=== PATIENT | male | born 1980 | race Hispanic/Latino ===

== ENCOUNTER 2023-05-14 05:17 | Inpatient (IN) | payer OTHER ==
[2023-05-14 06:45] VITALS: BMI 66.7
[2023-05-14] MEDS ORDERED: Acetaminophen 325 MG TAB PO PRN (07:39)
[2023-05-14] MEDS ORDERED: Guaifenesin DM 100-10/5 ML UDCUP PO PRN (07:39)
[2023-05-14] MEDS ORDERED: Senokot S 8.6-50 MG TAB PO PRN (07:39)
[2023-05-14] MEDS ORDERED: HYDROcodone/Acetaminophen 5/325 mg Tablet PO PRN (07:39)
[2023-05-14] MEDS ORDERED: HumaLOG 300 UNITS/3 ML VIAL SC PRN (07:53)
[2023-05-14] MEDS ORDERED: Glucagon 1 MG/ML KIT IM PRN (07:53)
[2023-05-14] MEDS ORDERED: Dextrose 50% Abboject 50 ML SYRINGE SLOW IVP PRN (07:53)
[2023-05-14] MEDS ORDERED: Dextrose 5% in Water 1,000 ML IV PRN (07:53)
[2023-05-14] MEDS ORDERED: Vancomycin HCl 500 MG in Sodium Chloride 0.9% 100 ML IVPB SCH (08:15)
[2023-05-14 08:27] LABS: Anion Gap 14 mmol/L (10-20); BUN (Urea Nitrogen) 18 mg/dL (8.9-20.6); CRP (Inflammatory) 21.29 mg/dL (= or < 0.5); Calc. Creatinine Clearance 184 mL/min (70-130); Calcium 8.2 mg/dL (7.8-10.44); Carbon Dioxide 18 mmol/L (22-29); Chloride 105 mmol/L (98-107); Estimated GFR 59; Glucose 109 mg/dL (70-105); Sodium 133 mmol/L (136-145)
[2023-05-14] MEDS ORDERED: Ipratropium/Albuterol 3 ML NEB NEB PRN (08:27)
[2023-05-14] MEDS ORDERED: Albuterol 200 PUFF (6.7GM INHALER) INH PRN (08:31)
[2023-05-14] MEDS: HYDROcodone/Acetaminophen 5/325 mg Tablet PO PRN (08:57)
[2023-05-14] MEDS ORDERED: Mometasone 100 MCG/PUFF (1 INHALER) INH SCH (09:00)
[2023-05-14] MEDS: Carvedilol 6.25 MG TAB PO SCH ×2 (09:07→20:18)
[2023-05-14] MEDS: Citalopram 20 MG TAB PO SCH (09:08)
[2023-05-14] MEDS: hydrALAZINE 25 MG TAB PO SCH ×3 (09:08→20:18)
[2023-05-14] MEDS ORDERED: Piperacillin/Tazobactam 3.375 GM in Sodium Chloride 0.9% 100 ML IVPB SCH (09:45)
[2023-05-14] MEDS: Morphine 4 MG/ML VIAL SLOW IVP PRN ×2 (12:58→20:18)
[2023-05-14] MEDS ORDERED: Iopamidol-370 76% 500 ML MDV (1 ML CHARGE) ONE (14:19)
[2023-05-14] MEDS: Piperacillin/Tazobactam 3.375 GM in Sodium Chloride 0.9% 100 ML IVPB SCH ×2 (14:53→21:04)
[2023-05-14] MEDS: Ketorolac Tromethamine 30 MG/ML VIAL IVP PRN (15:17)
[2023-05-14 15:56] LABS: Troponin I Less than 0.010 ng/mL (< 0.028)
[2023-05-14 16:44] LABS: Bacteria/HPF None Seen HPF (None Seen); Bilirubin Negative (Negative); Blood, Urine Negative (Negative); Clarity Clear (Clear); Glucose, Urine (Dipstick) Greater than 1000 mg/dL (Negative); Ketone, Urine Negative (Negative); Leukocyte Negative Leu/uL (Negative); Nitrite Negative (Negative); Protein, Urine (Dipstick) Negative (Neg-Trace); RBC/HPF 0-3 HPF (0-3); Squamous Epithelial 0-3 HPF (0-3); Urobilinogen Normal mg/dL (Less than 2); WBC/HPF 0-3 HPF (0-3); pH, Urine 6.5 (5.0-9.0)
[2023-05-14] MEDS: VANCOMYCIN 2 GRAM/500 ML BAG 2 GM in Premix Bag 1 BAG IVPB SCH (17:38)
[2023-05-14] MEDS: Mometasone 100 MCG/PUFF (1 INHALER) INH SCH (19:11)
[2023-05-15] MEDS: Ketorolac Tromethamine 30 MG/ML VIAL IVP PRN ×3 (00:47→23:34)
[2023-05-15] MEDS: VANCOMYCIN 2 GRAM/500 ML BAG 2 GM in Premix Bag 1 BAG IVPB SCH ×3 (04:02→20:20)
[2023-05-15] MEDS: HYDROcodone/Acetaminophen 5/325 mg Tablet PO PRN ×2 (05:00→18:17)
[2023-05-15] MEDS: Piperacillin/Tazobactam 3.375 GM in Sodium Chloride 0.9% 100 ML IVPB SCH ×3 (06:55→23:35)
[2023-05-15 07:00] LABS: #Eosinphils 0.3 thou/uL (0.0-0.7); #Monocytes 0.7 thou/uL (0.11-0.59); #Neutrophils 5.8 thou/uL (1.40-6.50); %Basophils 0.5 % (0.0-1.0); %Eosinophils 3.3 % (0.0-10.0); %Monocytes 9.4 % (0.0-10.0); %Neutrophils 75.9 % (42.0-75.0); Hematocrit 31.1 % (42.0-52.0); Hemoglobin 9.9 g/dL (14.0-18.0); Mean Corpuscular HGB CONC 31.8 g/dL (32.0-36.0); Mean Corpuscular Hemoglobin 26.4 pg (27.0-31.0); Mean Corpuscular Volume 82.9 fl (78.0-98.0); Mean Platelet Volume 9.4 fL (7.4-10.4); Platelet Count 222 10x3/uL (130-400); RBC Distribution Width 15.9 % (11.5-14.5); Red Blood Cell (RBC) Count 3.75 mill/uL (4.70-6.10); White Blood Cell (WBC) Count 7.6 10x3/uL (4.8-10.8)
[2023-05-15] MEDS: Mometasone 100 MCG/PUFF (1 INHALER) INH SCH ×2 (07:23→18:59)
[2023-05-15 07:28] LABS: Anion Gap 10 mmol/L (10-20); BUN (Urea Nitrogen) 15 mg/dL (8.9-20.6); Calc. Creatinine Clearance 198 mL/min (70-130); Calcium 8.4 mg/dL (7.8-10.44); Carbon Dioxide 20 mmol/L (22-29); Chloride 106 mmol/L (98-107); Estimated GFR 65; Glucose 111 mg/dL (70-105); Potassium 4.1 mmol/L (3.5-5.1); Sodium 132 mmol/L (136-145)
[2023-05-15] MEDS: Morphine 4 MG/ML VIAL SLOW IVP PRN ×2 (07:54→20:20)
[2023-05-15] MEDS: Carvedilol 6.25 MG TAB PO SCH ×2 (07:55→20:20)
[2023-05-15] MEDS: Citalopram 20 MG TAB PO SCH (07:57)
[2023-05-15] MEDS: hydrALAZINE 25 MG TAB PO SCH ×3 (07:58→20:19)
[2023-05-15 17:14] LABS: Vancomycin, Trough 17.1 ug/mL
[2023-05-16] MEDS: metroNIDAZOLE 500 MG TAB PO SCH ×4 (01:56→20:27)
[2023-05-16] MEDS: HYDROcodone/Acetaminophen 5/325 mg Tablet PO PRN ×2 (02:41→17:31)
[2023-05-16] MEDS: Cefepime 2 GM in Sodium Chloride 0.9% 100 ML IVPB SCH ×3 (05:22→22:54)
[2023-05-16] MEDS: Furosemide 40 MG/4 ML VIAL SLOW IVP SCH ×2 (05:23→13:30)
[2023-05-16] MEDS: Morphine 4 MG/ML VIAL SLOW IVP PRN ×3 (06:09→22:52)
[2023-05-16] MEDS: VANCOMYCIN 2 GRAM/500 ML BAG 2 GM in Premix Bag 1 BAG IVPB SCH ×2 (06:10→17:26)
[2023-05-16] MEDS: Mometasone 100 MCG/PUFF (1 INHALER) INH SCH ×2 (07:31→19:19)
[2023-05-16] MEDS: hydrALAZINE 25 MG TAB PO SCH ×3 (09:16→20:27)
[2023-05-16] MEDS: Carvedilol 6.25 MG TAB PO SCH ×2 (09:18→20:27)
[2023-05-16] MEDS: Ketorolac Tromethamine 30 MG/ML VIAL IVP PRN ×2 (09:18→20:29)
[2023-05-16] MEDS: Citalopram 20 MG TAB PO SCH (09:18)
[2023-05-17] MEDS: HYDROcodone/Acetaminophen 5/325 mg Tablet PO PRN ×3 (02:19→20:42)
[2023-05-17] MEDS: metroNIDAZOLE 500 MG TAB PO SCH ×4 (02:19→20:42)
[2023-05-17] MEDS: Cefepime 2 GM in Sodium Chloride 0.9% 100 ML IVPB SCH ×3 (05:05→21:25)
[2023-05-17 05:19] LABS: #Eosinphils 0.3 thou/uL (0.0-0.7); #Monocytes 0.7 thou/uL (0.11-0.59); #Neutrophils 5.1 thou/uL (1.40-6.50); %Basophils 0.6 % (0.0-1.0); %Eosinophils 3.6 % (0.0-10.0); %Monocytes 9.5 % (0.0-10.0); %Neutrophils 72.2 % (42.0-75.0); Hematocrit 31.2 % (42.0-52.0); Hemoglobin 10.1 g/dL (14.0-18.0); Mean Corpuscular HGB CONC 32.4 g/dL (32.0-36.0); Mean Corpuscular Volume 80.2 fl (78.0-98.0); Mean Platelet Volume 9.8 fL (7.4-10.4); Platelet Count 270 10x3/uL (130-400); RBC Distribution Width 15.5 % (11.5-14.5); Red Blood Cell (RBC) Count 3.89 mill/uL (4.70-6.10)
[2023-05-17 05:42] LABS: Vancomycin, Trough 21.6 ug/mL
[2023-05-17 05:50] LABS: Anion Gap 7 mmol/L (10-20); BUN (Urea Nitrogen) 21 mg/dL (8.9-20.6); Calc. Creatinine Clearance 239 mL/min (70-130); Calcium 8.5 mg/dL (7.8-10.44); Carbon Dioxide 26 mmol/L (22-29); Chloride 104 mmol/L (98-107); Estimated GFR 83; Glucose 106 mg/dL (70-105); Sodium 133 mmol/L (136-145)
[2023-05-17] MEDS: VANCOMYCIN 2 GRAM/500 ML BAG 2 GM in Premix Bag 1 BAG IVPB SCH (06:16)
[2023-05-17] MEDS: Furosemide 40 MG/4 ML VIAL SLOW IVP SCH ×2 (06:25→13:56)
[2023-05-17] MEDS: VANCOMYCIN 1.75 GM/500 ML BAG 1.75 GM in Premix Bag 1 BAG IVPB SCH ×2 (06:25→18:35)
[2023-05-17] MEDS: Ketorolac Tromethamine 30 MG/ML VIAL IVP PRN ×3 (06:26→23:43)
[2023-05-17] MEDS: Mometasone 100 MCG/PUFF (1 INHALER) INH SCH ×2 (07:37→19:16)
[2023-05-17] MEDS: Carvedilol 6.25 MG TAB PO SCH ×2 (08:43→20:41)
[2023-05-17] MEDS: hydrALAZINE 25 MG TAB PO SCH ×3 (08:44→20:41)
[2023-05-17] MEDS: Citalopram 20 MG TAB PO SCH (08:44)
[2023-05-17] MEDS: Morphine 4 MG/ML VIAL SLOW IVP PRN (08:45)
[2023-05-17] MEDS: Ondansetron ODT 4 MG TAB PO PRN (17:17)
[2023-05-18] MEDS: metroNIDAZOLE 500 MG TAB PO SCH ×4 (02:07→19:41)
[2023-05-18] MEDS: HYDROcodone/Acetaminophen 5/325 mg Tablet PO PRN ×3 (05:01→19:42)
[2023-05-18] MEDS: Cefepime 2 GM in Sodium Chloride 0.9% 100 ML IVPB SCH ×3 (05:02→21:15)
[2023-05-18] MEDS: Furosemide 40 MG/4 ML VIAL SLOW IVP SCH ×2 (05:03→14:39)
[2023-05-18] MEDS: VANCOMYCIN 1.75 GM/500 ML BAG 1.75 GM in Premix Bag 1 BAG IVPB SCH ×2 (05:42→19:22)
[2023-05-18 07:34] LABS: Anion Gap 12 mmol/L (10-20); BUN (Urea Nitrogen) 19 mg/dL (8.9-20.6); Calc. Creatinine Clearance 229 mL/min (70-130); Calcium 9.1 mg/dL (7.8-10.44); Carbon Dioxide 25 mmol/L (22-29); Chloride 100 mmol/L (98-107); Estimated GFR 79; Glucose 112 mg/dL (70-105); Sodium 133 mmol/L (136-145)
[2023-05-18] MEDS: Citalopram 20 MG TAB PO SCH (08:12)
[2023-05-18] MEDS: Ondansetron ODT 4 MG TAB PO PRN (08:12)
[2023-05-18] MEDS: Carvedilol 6.25 MG TAB PO SCH ×2 (08:13→19:42)
[2023-05-18] MEDS: hydrALAZINE 25 MG TAB PO SCH ×3 (08:13→19:41)
[2023-05-18] MEDS: Mometasone 100 MCG/PUFF (1 INHALER) INH SCH ×2 (08:14→19:12)
[2023-05-18] MEDS: Morphine 4 MG/ML VIAL SLOW IVP PRN ×2 (08:23→17:07)
[2023-05-18 18:14] LABS: Vancomycin, Trough 22.7 ug/mL
[2023-05-18] MEDS: Vancomycin 1.5 GRAM/300 ML BAG 1.5 GM in Premix Bag 1 BAG IVPB SCH (21:57)
[2023-05-19] MEDS: Ketorolac Tromethamine 30 MG/ML VIAL IVP PRN (00:25)
[2023-05-19] MEDS: metroNIDAZOLE 500 MG TAB PO SCH ×4 (02:46→20:03)
[2023-05-19] MEDS: Cefepime 2 GM in Sodium Chloride 0.9% 100 ML IVPB SCH ×3 (05:34→22:42)
[2023-05-19] MEDS: Furosemide 40 MG/4 ML VIAL SLOW IVP SCH ×2 (05:34→13:41)
[2023-05-19] MEDS: HYDROcodone/Acetaminophen 5/325 mg Tablet PO PRN ×3 (05:43→19:59)
[2023-05-19] MEDS ORDERED: VANCOMYCIN 1.75 GM/500 ML BAG 1.75 GM in Premix Bag 1 BAG IVPB SCH (06:00)
[2023-05-19] MEDS: Mometasone 100 MCG/PUFF (1 INHALER) INH SCH ×2 (06:54→19:07)
[2023-05-19] MEDS: Carvedilol 6.25 MG TAB PO SCH ×2 (08:46→19:58)
[2023-05-19] MEDS: Citalopram 20 MG TAB PO SCH (08:46)
[2023-05-19] MEDS: hydrALAZINE 25 MG TAB PO SCH ×3 (08:46→19:58)
[2023-05-19] MEDS: Morphine 4 MG/ML VIAL SLOW IVP PRN ×2 (08:52→16:32)
[2023-05-19] MEDS: Vancomycin 1.5 GRAM/300 ML BAG 1.5 GM in Premix Bag 1 BAG IVPB SCH ×2 (10:46→23:39)
[2023-05-19] MEDS: Ondansetron ODT 4 MG TAB PO PRN ×2 (13:41→20:03)
[2023-05-20] MEDS: Morphine 4 MG/ML VIAL SLOW IVP PRN ×3 (00:48→16:59)
[2023-05-20] MEDS: metroNIDAZOLE 500 MG TAB PO SCH ×3 (02:03→17:00)
[2023-05-20] MEDS: Cefepime 2 GM in Sodium Chloride 0.9% 100 ML IVPB SCH ×2 (05:27→16:26)
[2023-05-20] MEDS: HYDROcodone/Acetaminophen 5/325 mg Tablet PO PRN ×2 (05:28→13:20)
[2023-05-20] MEDS: Furosemide 40 MG/4 ML VIAL SLOW IVP SCH ×2 (05:28→16:27)
[2023-05-20 06:25] LABS: #Basophils 0.1 thou/uL (0.0-0.2); #Eosinphils 0.3 thou/uL (0.0-0.7); #Monocytes 0.6 thou/uL (0.11-0.59); #Neutrophils 5.9 thou/uL (1.40-6.50); %Eosinophils 3.1 % (0.0-10.0); %Lymphocytes 16.8 % (21.0-51.0); %Monocytes 6.6 % (0.0-10.0); %Neutrophils 68.9 % (42.0-75.0); Hemoglobin 11.6 g/dL (14.0-18.0); Mean Corpuscular HGB CONC 31.4 g/dL (32.0-36.0); Mean Corpuscular Hemoglobin 25.4 pg (27.0-31.0); Mean Platelet Volume 9.3 fL (7.4-10.4); Platelet Count 338 10x3/uL (130-400); RBC Distribution Width 15.1 % (11.5-14.5); Red Blood Cell (RBC) Count 4.57 mill/uL (4.70-6.10); White Blood Cell (WBC) Count 8.6 10x3/uL (4.8-10.8)
[2023-05-20 06:50] LABS: Anion Gap 12 mmol/L (10-20); BUN (Urea Nitrogen) 16 mg/dL (8.9-20.6); Calc. Creatinine Clearance 286 mL/min (70-130); Calcium 9.1 mg/dL (7.8-10.44); Carbon Dioxide 26 mmol/L (22-29); Chloride 101 mmol/L (98-107); Estimated GFR 103; Glucose 109 mg/dL (70-105); Potassium 4.4 mmol/L (3.5-5.1); Sodium 135 mmol/L (136-145)
[2023-05-20] MEDS: Mometasone 100 MCG/PUFF (1 INHALER) INH SCH (07:08)
[2023-05-20] MEDS: Carvedilol 6.25 MG TAB PO SCH (09:12)
[2023-05-20] MEDS: Citalopram 20 MG TAB PO SCH (09:13)
[2023-05-20] MEDS: hydrALAZINE 25 MG TAB PO SCH ×2 (09:13→17:00)
[2023-05-20 10:31] LABS: Vancomycin, Trough 16.5 ug/mL
[2023-05-20] MEDS ORDERED: VANCOMYCIN 1.75 GM/500 ML BAG 1.75 GM in Premix Bag 1 BAG IVPB SCH (11:00)
[2023-05-20 17:12] VITALS: BP 173/69
[2023-05-20 17:29] VITALS: TEMP 98.4
== END 2023-05-20 18:40 | DRG 872 ==
LOC: T4-B 06:23 → EEVIPCON 07:39 → OBSVTOIN 07:39
PROVIDERS: ADMIT Hospitalist; ATTEND Family Medicine
PROC: 3E03329 Introduction of Other Anti-infective into Peripheral Vein, Percutaneous Approach (ICD-10-PCS; principal; 2023-05-14)
PROC: 5A09457 Assistance with Respiratory Ventilation, 24-96 Consecutive Hours, Continuous Positive Airway Pressure (ICD-10-PCS; 2023-05-14)
DX: A41.9 Sepsis, unspecified organism (principal); I50.32 Chronic diastolic (congestive) heart failure; Z68.44 Body mass index [BMI] 60.0-69.9, adult; G82.20 Paraplegia, unspecified; N17.9 Acute kidney failure, unspecified; N49.2 Inflammatory disorders of scrotum; E66.01 Morbid (severe) obesity due to excess calories; I11.0 Hypertensive heart disease with heart failure; E11.9 Type 2 diabetes mellitus without complications; G47.33 Obstructive sleep apnea (adult) (pediatric); Z99.3 Dependence on wheelchair; J45.909 Unspecified asthma, uncomplicated; I89.0 Lymphedema, not elsewhere classified; N43.3 Hydrocele, unspecified; Z88.0 Allergy status to penicillin; Z79.82 Long term (current) use of aspirin; Z79.899 Other long term (current) drug therapy; Z85.53 Personal history of malignant neoplasm of renal pelvis; Z90.5 Acquired absence of kidney; Z87.891 Personal history of nicotine dependence; I69.364 Other paralytic syndrome following cerebral infarction affecting left non-dominant side
CPT/HCPCS: 36415; 36416; 72193; 80048; 80053; 80202; 81001; 83605; 83735; 83880; 84484; 85025; 86140; 87040; 93005; 93010; 94660; 96365; 96375; 97139; J0692; J1650; J1885; J1940; J2270; J2272; J2405; J2543; J3370; J3490; Q0162; Q9967

== ENCOUNTER 2023-07-14 23:15 | Inpatient (IN) | payer OTHER ==
[2023-07-15] MEDS ORDERED: Acetaminophen 325 MG TAB PO PRN (01:15)
[2023-07-15] MEDS ORDERED: Ondansetron ODT 4 MG TAB PO PRN (01:15)
[2023-07-15 01:21] LABS: #Basophils 0.1 thou/uL (0.0-0.2); #Monocytes 0.6 thou/uL (0.11-0.59); #Neutrophils 16.9 thou/uL (1.40-6.50); %Basophils 0.5 % (0.0-1.0); %Eosinophils 0.1 % (0.0-10.0); %Lymphocytes 2.6 % (21.0-51.0); %Monocytes 3.4 % (0.0-10.0); %Neutrophils 92.8 % (42.0-75.0); Hemoglobin 12.8 g/dL (14.0-18.0); Mean Corpuscular Hemoglobin 25.3 pg (27.0-31.0); Mean Corpuscular Volume 79.1 fl (78.0-98.0); Platelet Count 261 10x3/uL (130-400); RBC Distribution Width 14.3 % (11.5-14.5); Red Blood Cell (RBC) Count 5.06 mill/uL (4.70-6.10); White Blood Cell (WBC) Count 18.2 10x3/uL (4.8-10.8)
[2023-07-15 01:42] LABS: Anion Gap 19 mmol/L (10-20); BUN (Urea Nitrogen) 22 mg/dL (8.9-20.6); Calc. Creatinine Clearance 185 mL/min (70-130); Calcium 9.1 mg/dL (7.8-10.44); Carbon Dioxide 22 mmol/L (22-29); Chloride 100 mmol/L (98-107); Estimated GFR 63; Glucose 120 mg/dL (70-105); Potassium 4.1 mmol/L (3.5-5.1); Sodium 137 mmol/L (136-145)
[2023-07-15] MEDS ORDERED: Ketorolac Tromethamine 30 MG/ML VIAL IVP SCH (01:45)
[2023-07-15 01:47] LABS: Hemoglobin A1c 5.8 % (4.0-6.0)
[2023-07-15 02:07] LABS: Troponin I Less than 0.010 ng/mL (< 0.028)
[2023-07-15] MEDS: Ketorolac Tromethamine 30 MG/ML VIAL IVP PRN (03:48)
[2023-07-15] MEDS: Vancomycin 1 GM in Premix 1 BAG IVPB SCH ×3 (06:06→21:59)
[2023-07-15 07:10] LABS: Troponin I Less than 0.010 ng/mL (< 0.028)
[2023-07-15] MEDS ORDERED: VANCO/ABX IVPB PRN (08:53)
[2023-07-15] MEDS ORDERED: Cefepime 1 GM in Sodium Chloride 0.9% 100 ML IVPB SCH (09:00)
[2023-07-15] MEDS ORDERED: FLU VACC QS2023-24(6MOS UP)/PF 60 MCG/0.5 ML SYRINGE IM ONE (09:00)
[2023-07-15] MEDS: Morphine 2 MG/ML VIAL SLOW IVP PRN ×4 (09:10→21:13)
[2023-07-15] MEDS: Famotidine/PF 20 mg/2ml Vial SLOW IVP SCH ×2 (09:10→21:09)
[2023-07-15] MEDS ORDERED: Sodium Chloride 0.9% 1,000 ML IV SCH (09:15)
[2023-07-15] MEDS: hydrALAZINE 25 MG TAB PO SCH ×3 (14:46→21:08)
[2023-07-15] MEDS: Mometasone 100 MCG HFA INHALER (RT USE) INH SCH (19:20)
[2023-07-15] MEDS: Cefepime 2 GM in Sodium Chloride 0.9% 100 ML IVPB SCH (21:08)
[2023-07-15] MEDS: Terazosin HCl 5 MG CAP PO SCH (21:08)
[2023-07-15] MEDS: Perphenazine 2 MG TAB PO SCH (21:08)
[2023-07-15 21:51] LABS: Vancomycin, Trough 19.7 ug/mL
[2023-07-16] MEDS: Morphine 2 MG/ML VIAL SLOW IVP PRN ×4 (02:34→20:26)
[2023-07-16] MEDS: Vancomycin 1 GM in Premix 1 BAG IVPB SCH (05:32)
[2023-07-16 05:41] LABS: #Basophils 0.1 thou/uL (0.0-0.2); #Eosinphils 0.2 thou/uL (0.0-0.7); #Monocytes 0.7 thou/uL (0.11-0.59); #Neutrophils 4.9 thou/uL (1.40-6.50); %Basophils 0.7 % (0.0-1.0); %Lymphocytes 14.3 % (21.0-51.0); %Monocytes 10.1 % (0.0-10.0); %Neutrophils 71.3 % (42.0-75.0); Hematocrit 36.4 % (42.0-52.0); Hemoglobin 11.4 g/dL (14.0-18.0); Mean Corpuscular HGB CONC 31.3 g/dL (32.0-36.0); Mean Corpuscular Hemoglobin 24.9 pg (27.0-31.0); Mean Corpuscular Volume 79.6 fl (78.0-98.0); Mean Platelet Volume 10.2 fL (7.4-10.4); Platelet Count 200 10x3/uL (130-400); RBC Distribution Width 14.4 % (11.5-14.5); Red Blood Cell (RBC) Count 4.57 mill/uL (4.70-6.10); White Blood Cell (WBC) Count 6.9 10x3/uL (4.8-10.8)
[2023-07-16 06:04] LABS: Anion Gap 11 mmol/L (10-20); BUN (Urea Nitrogen) 18 mg/dL (8.9-20.6); Calc. Creatinine Clearance 251 mL/min (70-130); Calcium 8.4 mg/dL (7.8-10.44); Carbon Dioxide 26 mmol/L (22-29); Chloride 102 mmol/L (98-107); Estimated GFR 90; Glucose 105 mg/dL (70-105); Potassium 3.6 mmol/L (3.5-5.1); Sodium 135 mmol/L (136-145)
[2023-07-16] MEDS: Mometasone 100 MCG HFA INHALER (RT USE) INH SCH ×2 (07:13→18:21)
[2023-07-16] MEDS: hydrALAZINE 25 MG TAB PO SCH ×3 (08:19→20:31)
[2023-07-16] MEDS: Empagliflozin 10 MG TAB PO SCH (08:20)
[2023-07-16] MEDS: Aspirin 81 mg Enteric Coated Tablet PO SCH (08:20)
[2023-07-16] MEDS: Sertraline 100 MG TAB PO SCH (08:20)
[2023-07-16] MEDS: Famotidine/PF 20 mg/2ml Vial SLOW IVP SCH ×2 (08:21→20:32)
[2023-07-16] MEDS: Cefepime 2 GM in Sodium Chloride 0.9% 100 ML IVPB SCH ×2 (08:21→20:31)
[2023-07-16] MEDS ORDERED: Vancomycin 1 GM in Premix 1 BAG IVPB SCH (12:15)
[2023-07-16 13:27] LABS: Vancomycin, Trough 22.1 ug/mL
[2023-07-16] MEDS: Terazosin HCl 5 MG CAP PO SCH (20:31)
[2023-07-16] MEDS: Perphenazine 2 MG TAB PO SCH (20:31)
[2023-07-16] MEDS: Vancomycin HCl 750 MG in Sodium Chloride 0.9% 250 ML 250 ML IVPB SCH (22:42)
[2023-07-17] MEDS: Ketorolac Tromethamine 30 MG/ML VIAL IVP SCH ×2 (00:15→00:21)
[2023-07-17] MEDS: Ketorolac Tromethamine 30 MG/ML VIAL IVP PRN (00:20)
[2023-07-17] MEDS: Morphine 2 MG/ML VIAL SLOW IVP PRN ×5 (01:01→20:14)
[2023-07-17] MEDS: Vancomycin HCl 750 MG in Sodium Chloride 0.9% 250 ML 250 ML IVPB SCH ×3 (05:47→22:20)
[2023-07-17 06:46] LABS: #Basophils 0.1 thou/uL (0.0-0.2); #Eosinphils 0.2 thou/uL (0.0-0.7); #Monocytes 0.6 thou/uL (0.11-0.59); #Neutrophils 4.3 thou/uL (1.40-6.50); %Basophils 0.9 % (0.0-1.0); %Eosinophils 3.6 % (0.0-10.0); %Lymphocytes 17.1 % (21.0-51.0); %Monocytes 9.2 % (0.0-10.0); %Neutrophils 68.6 % (42.0-75.0); Hematocrit 36.3 % (42.0-52.0); Hemoglobin 11.2 g/dL (14.0-18.0); Mean Corpuscular HGB CONC 30.9 g/dL (32.0-36.0); Mean Corpuscular Hemoglobin 24.6 pg (27.0-31.0); Mean Corpuscular Volume 79.8 fl (78.0-98.0); Platelet Count 207 10x3/uL (130-400); RBC Distribution Width 14.4 % (11.5-14.5); Red Blood Cell (RBC) Count 4.55 mill/uL (4.70-6.10); White Blood Cell (WBC) Count 6.3 10x3/uL (4.8-10.8)
[2023-07-17 07:07] LABS: Anion Gap 12 mmol/L (10-20); BUN (Urea Nitrogen) 17 mg/dL (8.9-20.6); Calc. Creatinine Clearance 256 mL/min (70-130); Calcium 8.2 mg/dL (7.8-10.44); Carbon Dioxide 25 mmol/L (22-29); Chloride 103 mmol/L (98-107); Estimated GFR 92; Glucose 98 mg/dL (70-105); Potassium 3.8 mmol/L (3.5-5.1); Sodium 136 mmol/L (136-145)
[2023-07-17] MEDS: Mometasone 100 MCG HFA INHALER (RT USE) INH SCH ×2 (08:03→18:35)
[2023-07-17] MEDS: Sertraline 100 MG TAB PO SCH (08:43)
[2023-07-17] MEDS: hydrALAZINE 25 MG TAB PO SCH ×3 (08:43→20:11)
[2023-07-17] MEDS: Aspirin 81 mg Enteric Coated Tablet PO SCH (08:43)
[2023-07-17] MEDS: Empagliflozin 10 MG TAB PO SCH (08:43)
[2023-07-17] MEDS: Cefepime 2 GM in Sodium Chloride 0.9% 100 ML IVPB SCH ×2 (08:44→20:13)
[2023-07-17] MEDS: Famotidine/PF 20 mg/2ml Vial SLOW IVP SCH (08:45)
[2023-07-17] MEDS: Terazosin HCl 5 MG CAP PO SCH (20:11)
[2023-07-17] MEDS: Calcium Carbonate 600 MG TAB PO SCH (20:12)
[2023-07-17] MEDS: Perphenazine 2 MG TAB PO SCH (20:12)
[2023-07-17 21:53] LABS: Vancomycin, Trough 18.3 ug/mL
[2023-07-18] MEDS: Morphine 2 MG/ML VIAL SLOW IVP PRN ×2 (04:30→09:27)
[2023-07-18] MEDS: Vancomycin HCl 750 MG in Sodium Chloride 0.9% 250 ML 250 ML IVPB SCH ×2 (05:21→14:43)
[2023-07-18] MEDS: Mometasone 100 MCG HFA INHALER (RT USE) INH SCH (07:14)
[2023-07-18 07:53] LABS: #Basophils 0.1 thou/uL (0.0-0.2); #Eosinphils 0.2 thou/uL (0.0-0.7); #Monocytes 0.5 thou/uL (0.11-0.59); #Neutrophils 4.3 thou/uL (1.40-6.50); %Basophils 0.8 % (0.0-1.0); %Eosinophils 3.9 % (0.0-10.0); %Lymphocytes 17.6 % (21.0-51.0); %Monocytes 8.2 % (0.0-10.0); %Neutrophils 68.9 % (42.0-75.0); Hematocrit 36.8 % (42.0-52.0); Hemoglobin 11.5 g/dL (14.0-18.0); Mean Corpuscular HGB CONC 31.3 g/dL (32.0-36.0); Mean Corpuscular Hemoglobin 25.2 pg (27.0-31.0); Mean Corpuscular Volume 80.5 fl (78.0-98.0); Mean Platelet Volume 10.2 fL (7.4-10.4); Platelet Count 243 10x3/uL (130-400); RBC Distribution Width 14.2 % (11.5-14.5); Red Blood Cell (RBC) Count 4.57 mill/uL (4.70-6.10); White Blood Cell (WBC) Count 6.2 10x3/uL (4.8-10.8)
[2023-07-18] MEDS: hydrALAZINE 25 MG TAB PO SCH ×2 (08:09→15:17)
[2023-07-18] MEDS: Aspirin 81 mg Enteric Coated Tablet PO SCH (08:09)
[2023-07-18] MEDS: Empagliflozin 10 MG TAB PO SCH (08:10)
[2023-07-18] MEDS: Cefepime 2 GM in Sodium Chloride 0.9% 100 ML IVPB SCH (08:10)
[2023-07-18] MEDS: Calcium Carbonate 600 MG TAB PO SCH (08:10)
[2023-07-18] MEDS: Sertraline 100 MG TAB PO SCH (08:10)
[2023-07-18 08:19] LABS: Anion Gap 12 mmol/L (10-20); BUN (Urea Nitrogen) 15 mg/dL (8.9-20.6); Calc. Creatinine Clearance 300 mL/min (70-130); Calcium 8.4 mg/dL (7.8-10.44); Carbon Dioxide 24 mmol/L (22-29); Chloride 104 mmol/L (98-107); Estimated GFR 108; Glucose 109 mg/dL (70-105); Potassium 3.9 mmol/L (3.5-5.1); Sodium 136 mmol/L (136-145)
[2023-07-18] MEDS ORDERED: valACYclovir 500 MG TAB PO SCH (09:00)
[2023-07-18] MEDS ORDERED: metFORMIN 500 MG TAB PO SCH (09:00)
[2023-07-18] MEDS ORDERED: Amlodipine 10 MG TAB PO SCH (09:00)
[2023-07-18 15:18] VITALS: BP 154/89
[2023-07-18 15:19] VITALS: TEMP 98.4
[2023-07-19] MEDS ORDERED: Ferrous Sulfate 325 MG TAB PO SCH (08:00)
== END 2023-07-18 17:55 | DRG 872 ==
LOC: 2SW 07-15 00:46 → EEVIPCON 07-15 00:46 → OBSVTOIN 07-15 12:40 → T4-B 07-16 11:58
PROVIDERS: ADMIT Student in an Organized Health Care Education/Training Program; ATTEND Family Medicine
DX: A41.9 Sepsis, unspecified organism (principal); I50.32 Chronic diastolic (congestive) heart failure; Z68.44 Body mass index [BMI] 60.0-69.9, adult; N17.9 Acute kidney failure, unspecified; I89.0 Lymphedema, not elsewhere classified; E11.9 Type 2 diabetes mellitus without complications; E66.01 Morbid (severe) obesity due to excess calories; Z79.82 Long term (current) use of aspirin; Z79.899 Other long term (current) drug therapy; E78.5 Hyperlipidemia, unspecified; Z83.3 Family history of diabetes mellitus; Z82.49 Family history of ischemic heart disease and other diseases of the circulatory system; Z98.890 Other specified postprocedural states; N49.2 Inflammatory disorders of scrotum; I11.0 Hypertensive heart disease with heart failure
CPT/HCPCS: 36415; 36416; 76870; 80048; 80202; 83036; 83880; 84484; 85025; 93306; 94660; 94664; 96374; 96375; 96376; G0378; J0692; J1650; J1885; J2272; J3370; J3370-JW; J3490; J7050; Q0175; S0028

== ENCOUNTER 2023-08-26 21:50 | Emergency (ER) | payer OTHER ==
[2023-08-26 22:19] LABS: #Basophils 0.1 thou/uL (0.0-0.2); #Eosinphils 0.2 thou/uL (0.0-0.7); #Monocytes 0.6 thou/uL (0.11-0.59); #Neutrophils 7.1 thou/uL (1.40-6.50); %Basophils 0.7 % (0.0-1.0); %Eosinophils 1.9 % (0.0-10.0); %Lymphocytes 10.9 % (21.0-51.0); %Monocytes 6.6 % (0.0-10.0); %Neutrophils 79.5 % (42.0-75.0); Hematocrit 38.5 % (42.0-52.0); Hemoglobin 11.8 g/dL (14.0-18.0); Mean Corpuscular HGB CONC 30.6 g/dL (32.0-36.0); Mean Corpuscular Hemoglobin 24.1 pg (27.0-31.0); Mean Corpuscular Volume 78.6 fl (78.0-98.0); Mean Platelet Volume 9.9 fL (7.4-10.4); Platelet Count 214 10x3/uL (130-400); RBC Distribution Width 14.4 % (11.5-14.5); White Blood Cell (WBC) Count 8.9 10x3/uL (4.8-10.8)
[2023-08-26 22:41] LABS: Bacteria/HPF None Seen HPF (None Seen); Bilirubin Negative (Negative); Blood, Urine Negative (Negative); CAUTI Indications for Culture Dysuria,urgency,freq; Clarity Clear (Clear); Glucose, Urine (Dipstick) Greater than 1000 mg/dL (Negative); Ketone, Urine Negative (Negative); Leukocyte Negative Leu/uL (Negative); Nitrite Negative (Negative); Protein, Urine (Dipstick) Negative (Neg-Trace); RBC/HPF 0-3 HPF (0-3); Squamous Epithelial None Seen HPF (0-3); Urobilinogen Normal mg/dL (Less than 2); WBC/HPF 0-3 HPF (0-3); pH, Urine 5.5 (5.0-9.0)
[2023-08-26 22:42] LABS: Urine Culture Reflex No No
[2023-08-26 22:46] LABS: ALT (SGPT) 14 U/L (8-55); AST (SGOT) 16 U/L (5-34); Albumin 3.7 g/dL (3.5-5.0); Alkaline Phosphatase 88 U/L (40-110); Anion Gap 13 mmol/L (10-20); BUN (Urea Nitrogen) 22 mg/dL (8.9-20.6); Bilirubin, Total 0.2 mg/dL (0.2-1.2); Calc. Creatinine Clearance 0 mL/min (70-130); Calcium 8.5 mg/dL (7.8-10.44); Carbon Dioxide 25 mmol/L (22-29); Chloride 104 mmol/L (98-107); Estimated GFR 84; Globulin 2.9 g/dL (2.4-3.5); Glucose 116 mg/dL (70-105); Lipase 21 U/L (8-78); Potassium 3.9 mmol/L (3.5-5.1); Protein, Total 6.6 g/dL (6.0-8.3); Sodium 138 mmol/L (136-145)
[2023-08-26 22:50] LABS: Troponin I Less than 0.010 ng/mL (< 0.028)
[2023-08-27] MEDS ORDERED: HYDROcodone/Acetaminophen 10/325 mg Tablet ONE (00:13)
[2023-08-27 01:11] LABS: Troponin I Less than 0.010 ng/mL (< 0.028)
== END 2023-08-27 01:30 ==
LOC: EEVIPCON 21:50 → ERS 21:50
DX: R07.9 Chest pain, unspecified (principal); N50.82 Scrotal pain; E11.9 Type 2 diabetes mellitus without complications; I11.0 Hypertensive heart disease with heart failure; I50.9 Heart failure, unspecified; E66.9 Obesity, unspecified
CPT/HCPCS: 36415; 71045; 76870; 80053; 81001; 83690; 83880; 84484; 85025; 93005; 93976

== ENCOUNTER 2023-09-11 17:36 | Inpatient (IN) | payer OTHER ==
[2023-09-11 19:56] VITALS: BMI 57.4
[2023-09-11] MEDS ORDERED: Acetaminophen 325 MG TAB PO PRN (20:02)
[2023-09-11] MEDS ORDERED: Calcium Carbonate 500 MG ChewTAB PO PRN (20:02)
[2023-09-11] MEDS ORDERED: Ketorolac Tromethamine 30 MG (1 mL) VIAL IVP SCH (21:00)
[2023-09-11 21:05] LABS: #Basophils 0.1 thou/uL (0.0-0.2); #Monocytes 0.4 thou/uL (0.11-0.59); #Neutrophils 18.8 thou/uL (1.40-6.50); %Basophils 0.3 % (0.0-1.0); %Eosinophils 0.1 % (0.0-10.0); %Lymphocytes 2.3 % (21.0-51.0); %Neutrophils 94.6 % (42.0-75.0); Hematocrit 42.4 % (42.0-52.0); Hemoglobin 12.9 g/dL (14.0-18.0); Mean Corpuscular HGB CONC 30.4 g/dL (32.0-36.0); Mean Corpuscular Hemoglobin 24.3 pg (27.0-31.0); Mean Corpuscular Volume 79.8 fl (78.0-98.0); Mean Platelet Volume 10.2 fL (7.4-10.4); Platelet Count 219 10x3/uL (130-400); RBC Distribution Width 14.9 % (11.5-14.5); Red Blood Cell (RBC) Count 5.31 mill/uL (4.70-6.10); White Blood Cell (WBC) Count 19.9 10x3/uL (4.8-10.8)
[2023-09-11] MEDS: Ondansetron ODT 4 MG TAB PO PRN (21:10)
[2023-09-11] MEDS: Calcium Carbonate 600 MG TAB PO SCH (21:11)
[2023-09-11] MEDS: Carvedilol 6.25 MG TAB PO SCH (21:19)
[2023-09-11] MEDS: Famotidine 20 MG TAB PO SCH (21:19)
[2023-09-11] MEDS: Doxycycline 100 MG CAP PO SCH (21:19)
[2023-09-11] MEDS: Terazosin HCl 5 MG CAP PO SCH (21:20)
[2023-09-11] MEDS: hydrALAZINE 25 MG TAB PO SCH (21:20)
[2023-09-11] MEDS: Perphenazine 2 MG TAB PO SCH (21:23)
[2023-09-11 21:27] LABS: Lactic Acid 2.6 mmol/L (0.5-2.2)
[2023-09-11 21:30] LABS: Anion Gap 14 mmol/L (10-20); BUN (Urea Nitrogen) 19 mg/dL (8.9-20.6); Calc. Creatinine Clearance 183 mL/min (70-130); Calcium 8.2 mg/dL (7.8-10.44); Carbon Dioxide 24 mmol/L (22-29); Chloride 102 mmol/L (98-107); Estimated GFR 68; Glucose 137 mg/dL (70-105); Potassium 4.6 mmol/L (3.5-5.1); Sodium 135 mmol/L (136-145)
[2023-09-11] MEDS ORDERED: Lorazepam 0.5 MG TAB PO SCH (21:30)
[2023-09-11] MEDS ORDERED: D5 1/2 NS w/20 mEq KCL 1,000 ML IV SCH (23:30)
[2023-09-11] MEDS ORDERED: Piperacillin/Tazobactam 3.375 GM in Sodium Chloride 0.9% 100 ML IVPB SCH (23:59)
[2023-09-12] MEDS: Morphine 4 MG/ML VIAL SLOW IVP PRN ×5 (00:51→20:17)
[2023-09-12] MEDS: Piperacillin/Tazobactam 3.375 GM in Sodium Chloride 0.9% 100 ML IVPB SCH ×3 (05:47→20:24)
[2023-09-12] MEDS: Bumetanide 1 MG TAB PO SCH (08:36)
[2023-09-12] MEDS: metFORMIN 500 MG TAB PO SCH (08:36)
[2023-09-12] MEDS: Doxycycline 100 MG CAP PO SCH ×2 (08:36→20:19)
[2023-09-12] MEDS: Sertraline 100 MG TAB PO SCH (08:36)
[2023-09-12] MEDS: Aspirin 81 mg Enteric Coated Tablet PO SCH (08:36)
[2023-09-12] MEDS: Amlodipine 10 MG TAB PO SCH (08:36)
[2023-09-12] MEDS: Famotidine 20 MG TAB PO SCH ×2 (08:37→20:18)
[2023-09-12] MEDS: Calcium Carbonate 600 MG TAB PO SCH ×2 (08:37→20:19)
[2023-09-12] MEDS: Carvedilol 6.25 MG TAB PO SCH ×2 (08:37→20:18)
[2023-09-12] MEDS: hydrALAZINE 25 MG TAB PO SCH ×3 (08:37→20:19)
[2023-09-12] MEDS: Empagliflozin 10 MG TAB PO SCH (08:37)
[2023-09-12 10:34] LABS: #Basophils 0.1 thou/uL (0.0-0.2); #Eosinphils 0.1 thou/uL (0.0-0.7); #Monocytes 0.7 thou/uL (0.11-0.59); #Neutrophils 9.5 thou/uL (1.40-6.50); %Basophils 0.4 % (0.0-1.0); %Eosinophils 0.5 % (0.0-10.0); %Lymphocytes 6.8 % (21.0-51.0); %Monocytes 6.6 % (0.0-10.0); %Neutrophils 85.2 % (42.0-75.0); Hematocrit 36.8 % (42.0-52.0); Hemoglobin 11.4 g/dL (14.0-18.0); Mean Corpuscular Hemoglobin 24.6 pg (27.0-31.0); Mean Corpuscular Volume 79.3 fl (78.0-98.0); Platelet Count 189 10x3/uL (130-400); Red Blood Cell (RBC) Count 4.64 mill/uL (4.70-6.10); White Blood Cell (WBC) Count 11.2 10x3/uL (4.8-10.8)
[2023-09-12 10:56] LABS: Anion Gap 11 mmol/L (10-20); BUN (Urea Nitrogen) 17 mg/dL (8.9-20.6); Calc. Creatinine Clearance 214 mL/min (70-130); Calcium 7.8 mg/dL (7.8-10.44); Carbon Dioxide 24 mmol/L (22-29); Chloride 104 mmol/L (98-107); Estimated GFR 83; Glucose 123 mg/dL (70-105); Potassium 3.5 mmol/L (3.5-5.1); Sodium 135 mmol/L (136-145)
[2023-09-12] MEDS: Mometasone 100 MCG HFA INHALER (RT USE) INH SCH ×2 (11:05→19:28)
[2023-09-12 19:22] LABS: Vancomycin, Trough 7.6 ug/mL
[2023-09-12] MEDS: Terazosin HCl 5 MG CAP PO SCH (20:18)
[2023-09-12] MEDS: Perphenazine 2 MG TAB PO SCH (20:19)
[2023-09-12] MEDS: Melatonin 3 MG TAB PO PRN (22:37)
[2023-09-12] MEDS: HYDROcodone/Acetaminophen 5/325 mg Tablet PO PRN (22:37)
[2023-09-12] MEDS: Vancomycin (BATCH) 1.5 GM in Premix 1 BAG IVPB SCH (23:05)
[2023-09-13] MEDS: Morphine 4 MG/ML VIAL SLOW IVP PRN ×3 (02:49→21:23)
[2023-09-13] MEDS: Piperacillin/Tazobactam 3.375 GM in Sodium Chloride 0.9% 100 ML IVPB SCH ×3 (03:17→20:54)
[2023-09-13] MEDS: HYDROcodone/Acetaminophen 5/325 mg Tablet PO PRN ×4 (04:41→20:58)
[2023-09-13] MEDS: Ketorolac Tromethamine 30 MG (1 mL) VIAL IVP PRN ×2 (04:41→12:04)
[2023-09-13] MEDS: Mometasone 100 MCG HFA INHALER (RT USE) INH SCH ×2 (07:32→18:20)
[2023-09-13] MEDS: valACYclovir 500 MG TAB PO SCH (08:24)
[2023-09-13] MEDS: Amlodipine 10 MG TAB PO SCH (08:25)
[2023-09-13] MEDS: Carvedilol 6.25 MG TAB PO SCH ×2 (08:25→20:57)
[2023-09-13] MEDS: Empagliflozin 10 MG TAB PO SCH (08:25)
[2023-09-13] MEDS: Ferrous Sulfate 325 MG TAB PO SCH (08:25)
[2023-09-13] MEDS: hydrALAZINE 25 MG TAB PO SCH ×3 (08:25→20:56)
[2023-09-13] MEDS: Calcium Carbonate 600 MG TAB PO SCH ×2 (08:26→20:58)
[2023-09-13] MEDS: Doxycycline 100 MG CAP PO SCH ×2 (08:26→20:58)
[2023-09-13] MEDS: Bumetanide 1 MG TAB PO SCH (08:26)
[2023-09-13] MEDS: Aspirin 81 mg Enteric Coated Tablet PO SCH (08:26)
[2023-09-13] MEDS: Sertraline 100 MG TAB PO SCH (08:26)
[2023-09-13] MEDS: Famotidine 20 MG TAB PO SCH ×2 (08:27→20:58)
[2023-09-13] MEDS: metFORMIN 500 MG TAB PO SCH (08:27)
[2023-09-13] MEDS: Vancomycin (BATCH) 1.5 GM in Premix 1 BAG IVPB SCH ×2 (08:27→20:54)
[2023-09-13] MEDS: Ondansetron ODT 4 MG TAB PO PRN (12:51)
[2023-09-13] MEDS: Terazosin HCl 5 MG CAP PO SCH (20:58)
[2023-09-13] MEDS: Perphenazine 2 MG TAB PO SCH (21:15)
[2023-09-14] MEDS: Piperacillin/Tazobactam 3.375 GM in Sodium Chloride 0.9% 100 ML IVPB SCH (04:45)
[2023-09-14] MEDS: HYDROcodone/Acetaminophen 5/325 mg Tablet PO PRN ×4 (04:45→20:49)
[2023-09-14] MEDS: hydrOXYzine 25 MG TAB PO PRN ×2 (04:46→20:49)
[2023-09-14] MEDS: Morphine 4 MG/ML VIAL SLOW IVP PRN ×4 (05:37→22:29)
[2023-09-14] MEDS: hydrALAZINE 25 MG TAB PO SCH ×3 (08:25→20:48)
[2023-09-14] MEDS: Amlodipine 10 MG TAB PO SCH (08:26)
[2023-09-14] MEDS: Calcium Carbonate 600 MG TAB PO SCH ×2 (08:26→20:49)
[2023-09-14] MEDS: metFORMIN 500 MG TAB PO SCH (08:26)
[2023-09-14] MEDS: Aspirin 81 mg Enteric Coated Tablet PO SCH (08:26)
[2023-09-14] MEDS: Empagliflozin 10 MG TAB PO SCH (08:26)
[2023-09-14] MEDS: Bumetanide 1 MG TAB PO SCH (08:26)
[2023-09-14] MEDS: Carvedilol 6.25 MG TAB PO SCH ×2 (08:26→20:48)
[2023-09-14] MEDS: Famotidine 20 MG TAB PO SCH ×2 (08:27→20:48)
[2023-09-14] MEDS: valACYclovir 500 MG TAB PO SCH (08:27)
[2023-09-14] MEDS: Enoxaparin 40 MG (0.4 mL) SYRINGE SC SCH (08:27)
[2023-09-14] MEDS: Sertraline 100 MG TAB PO SCH (08:27)
[2023-09-14 09:14] LABS: Vancomycin, Trough 15.3 ug/mL
[2023-09-14] MEDS: Vancomycin (BATCH) 1.5 GM in Premix 1 BAG IVPB SCH ×2 (09:46→20:51)
[2023-09-14] MEDS: Senokot S 8.6-50 MG TAB PO PRN (09:47)
[2023-09-14] MEDS: Mometasone 100 MCG HFA INHALER (RT USE) INH SCH ×2 (10:30→19:17)
[2023-09-14] MEDS: diphenhydrAMINE 25 MG CAP PO PRN (13:57)
[2023-09-14] MEDS: Ondansetron ODT 4 MG TAB PO PRN (18:36)
[2023-09-14] MEDS: Albuterol 200 PUFF (6.7GM INHALER) INH PRN (19:18)
[2023-09-14] MEDS: Perphenazine 2 MG TAB PO SCH (20:48)
[2023-09-14] MEDS: Terazosin HCl 5 MG CAP PO SCH (20:49)
[2023-09-14] MEDS: Melatonin 3 MG TAB PO PRN (22:30)
[2023-09-15] MEDS: HYDROcodone/Acetaminophen 5/325 mg Tablet PO PRN ×5 (01:02→20:39)
[2023-09-15] MEDS: diphenhydrAMINE 25 MG CAP PO PRN (05:14)
[2023-09-15] MEDS: Mometasone 100 MCG HFA INHALER (RT USE) INH SCH ×2 (08:07→19:16)
[2023-09-15] MEDS: Albuterol 200 PUFF (6.7GM INHALER) INH PRN ×2 (08:09→19:18)
[2023-09-15] MEDS: Morphine 4 MG/ML VIAL SLOW IVP PRN ×3 (08:27→22:43)
[2023-09-15 08:59] LABS: #Basophils 0.1 thou/uL (0.0-0.2); #Eosinphils 0.2 thou/uL (0.0-0.7); #Monocytes 0.5 thou/uL (0.11-0.59); #Neutrophils 3.9 thou/uL (1.40-6.50); %Basophils 0.9 % (0.0-1.0); %Eosinophils 4.2 % (0.0-10.0); %Lymphocytes 18.2 % (21.0-51.0); %Monocytes 8.6 % (0.0-10.0); %Neutrophils 67.6 % (42.0-75.0); Hematocrit 34.5 % (42.0-52.0); Hemoglobin 10.4 g/dL (14.0-18.0); Mean Corpuscular HGB CONC 30.1 g/dL (32.0-36.0); Mean Corpuscular Volume 79.5 fl (78.0-98.0); Mean Platelet Volume 10.5 fL (7.4-10.4); Platelet Count 233 10x3/uL (130-400); RBC Distribution Width 14.7 % (11.5-14.5); Red Blood Cell (RBC) Count 4.34 mill/uL (4.70-6.10); White Blood Cell (WBC) Count 5.7 10x3/uL (4.8-10.8)
[2023-09-15 09:17] LABS: ALT (SGPT) 11 U/L (8-55); AST (SGOT) 12 U/L (5-34); Alkaline Phosphatase 59 U/L (40-110); Anion Gap 12 mmol/L (10-20); BUN (Urea Nitrogen) 12 mg/dL (8.9-20.6); Bilirubin, Total 0.2 mg/dL (0.2-1.2); Calc. Creatinine Clearance 266 mL/min (70-130); Calcium 8.3 mg/dL (7.8-10.44); Carbon Dioxide 27 mmol/L (22-29); Chloride 103 mmol/L (98-107); Estimated GFR 107; Globulin 3.3 g/dL (2.4-3.5); Glucose 99 mg/dL (70-105); Potassium 3.7 mmol/L (3.5-5.1); Protein, Total 6.3 g/dL (6.0-8.3); Sodium 138 mmol/L (136-145)
[2023-09-15] MEDS ORDERED: Polyethylene Glycol 3350 17 GM Packet PO SCH (10:15)
[2023-09-15] MEDS: Enoxaparin 40 MG (0.4 mL) SYRINGE SC SCH (10:49)
[2023-09-15] MEDS: valACYclovir 500 MG TAB PO SCH (10:50)
[2023-09-15] MEDS: Bumetanide 1 MG TAB PO SCH (10:50)
[2023-09-15] MEDS: Carvedilol 6.25 MG TAB PO SCH ×2 (10:53→20:38)
[2023-09-15] MEDS: Aspirin 81 mg Enteric Coated Tablet PO SCH (10:54)
[2023-09-15] MEDS: metFORMIN 500 MG TAB PO SCH (10:54)
[2023-09-15] MEDS: hydrALAZINE 25 MG TAB PO SCH ×3 (10:54→20:39)
[2023-09-15] MEDS: Sertraline 100 MG TAB PO SCH (10:54)
[2023-09-15] MEDS: Amlodipine 10 MG TAB PO SCH (10:54)
[2023-09-15] MEDS: Famotidine 20 MG TAB PO SCH ×2 (10:55→20:38)
[2023-09-15] MEDS: Empagliflozin 10 MG TAB PO SCH (10:55)
[2023-09-15] MEDS: Ferrous Sulfate 325 MG TAB PO SCH (10:55)
[2023-09-15] MEDS: Calcium Carbonate 600 MG TAB PO SCH ×2 (10:55→20:39)
[2023-09-15] MEDS: Vancomycin (BATCH) 1.5 GM in Premix 1 BAG IVPB SCH ×2 (11:10→20:47)
[2023-09-15] MEDS: Senokot S 8.6-50 MG TAB PO PRN (20:38)
[2023-09-15] MEDS: Perphenazine 2 MG TAB PO SCH (20:38)
[2023-09-15] MEDS: Terazosin HCl 5 MG CAP PO SCH (20:38)
[2023-09-15] MEDS: hydrOXYzine 25 MG TAB PO PRN (20:39)
[2023-09-15 20:52] LABS: Vancomycin, Trough 19.3 ug/mL
[2023-09-15] MEDS: Melatonin 3 MG TAB PO PRN (22:42)
[2023-09-16] MEDS: diphenhydrAMINE 25 MG CAP PO PRN (00:56)
[2023-09-16] MEDS: HYDROcodone/Acetaminophen 5/325 mg Tablet PO PRN ×5 (00:56→21:33)
[2023-09-16] MEDS: Morphine 4 MG/ML VIAL SLOW IVP PRN ×4 (04:41→20:03)
[2023-09-16] MEDS: Mometasone 100 MCG HFA INHALER (RT USE) INH SCH ×2 (07:37→20:42)
[2023-09-16] MEDS: Vancomycin (BATCH) 1.5 GM in Premix 1 BAG IVPB SCH ×2 (08:42→21:34)
[2023-09-16] MEDS: hydrALAZINE 25 MG TAB PO SCH ×3 (08:43→21:32)
[2023-09-16] MEDS: Enoxaparin 40 MG (0.4 mL) SYRINGE SC SCH (08:43)
[2023-09-16] MEDS: valACYclovir 500 MG TAB PO SCH (08:43)
[2023-09-16] MEDS: Amlodipine 10 MG TAB PO SCH (08:44)
[2023-09-16] MEDS: metFORMIN 500 MG TAB PO SCH (08:44)
[2023-09-16] MEDS: Famotidine 20 MG TAB PO SCH ×2 (08:45→21:33)
[2023-09-16] MEDS: Calcium Carbonate 600 MG TAB PO SCH ×2 (08:45→21:34)
[2023-09-16] MEDS: Empagliflozin 10 MG TAB PO SCH (08:45)
[2023-09-16] MEDS: Bumetanide 1 MG TAB PO SCH (08:45)
[2023-09-16] MEDS: Aspirin 81 mg Enteric Coated Tablet PO SCH (08:45)
[2023-09-16] MEDS: Carvedilol 6.25 MG TAB PO SCH ×2 (08:45→21:34)
[2023-09-16] MEDS: Sertraline 100 MG TAB PO SCH (08:45)
[2023-09-16] MEDS: Polyethylene Glycol 3350 17 GM Packet PO SCH (08:46)
[2023-09-16] MEDS: Albuterol 200 PUFF (6.7GM INHALER) INH PRN (20:43)
[2023-09-16] MEDS: Perphenazine 2 MG TAB PO SCH (21:32)
[2023-09-16] MEDS: Senokot S 8.6-50 MG TAB PO PRN (21:32)
[2023-09-16] MEDS: hydrOXYzine 25 MG TAB PO PRN (21:34)
[2023-09-16] MEDS: Terazosin HCl 5 MG CAP PO SCH (21:34)
[2023-09-17] MEDS: Melatonin 3 MG TAB PO PRN ×2 (01:45→22:00)
[2023-09-17] MEDS: diphenhydrAMINE 25 MG CAP PO PRN ×2 (01:46→14:48)
[2023-09-17] MEDS: HYDROcodone/Acetaminophen 5/325 mg Tablet PO PRN ×5 (01:46→22:00)
[2023-09-17] MEDS: Morphine 4 MG/ML VIAL SLOW IVP PRN ×4 (03:12→20:06)
[2023-09-17] MEDS: Mometasone 100 MCG HFA INHALER (RT USE) INH SCH ×2 (08:18→20:02)
[2023-09-17] MEDS: Vancomycin (BATCH) 1.5 GM in Premix 1 BAG IVPB SCH ×2 (09:29→20:59)
[2023-09-17] MEDS: Polyethylene Glycol 3350 17 GM Packet PO SCH (09:30)
[2023-09-17] MEDS: Enoxaparin 40 MG (0.4 mL) SYRINGE SC SCH (09:30)
[2023-09-17] MEDS: Bumetanide 1 MG TAB PO SCH (09:31)
[2023-09-17] MEDS: Calcium Carbonate 600 MG TAB PO SCH ×2 (09:31→20:57)
[2023-09-17] MEDS: Amlodipine 10 MG TAB PO SCH (09:31)
[2023-09-17] MEDS: Sertraline 100 MG TAB PO SCH (09:31)
[2023-09-17] MEDS: hydrALAZINE 25 MG TAB PO SCH ×3 (09:31→20:57)
[2023-09-17] MEDS: Ferrous Sulfate 325 MG TAB PO SCH (09:31)
[2023-09-17] MEDS: valACYclovir 500 MG TAB PO SCH (09:31)
[2023-09-17] MEDS: Empagliflozin 10 MG TAB PO SCH (09:32)
[2023-09-17] MEDS: Carvedilol 6.25 MG TAB PO SCH ×3 (09:32→20:56)
[2023-09-17] MEDS: Aspirin 81 mg Enteric Coated Tablet PO SCH (09:32)
[2023-09-17] MEDS: Famotidine 20 MG TAB PO SCH ×2 (09:32→20:57)
[2023-09-17] MEDS: metFORMIN 500 MG TAB PO SCH (09:32)
[2023-09-17] MEDS: Albuterol 200 PUFF (6.7GM INHALER) INH PRN (20:01)
[2023-09-17] MEDS: Perphenazine 2 MG TAB PO SCH (20:56)
[2023-09-17] MEDS: hydrOXYzine 25 MG TAB PO PRN (20:56)
[2023-09-17] MEDS: Terazosin HCl 5 MG CAP PO SCH (20:56)
[2023-09-17] MEDS: Senokot S 8.6-50 MG TAB PO PRN (20:57)
[2023-09-18] MEDS: Morphine 4 MG/ML VIAL SLOW IVP PRN ×6 (00:03→22:54)
[2023-09-18] MEDS: HYDROcodone/Acetaminophen 5/325 mg Tablet PO PRN ×4 (02:02→21:10)
[2023-09-18] MEDS: Albuterol 200 PUFF (6.7GM INHALER) INH PRN ×3 (03:40→19:29)
[2023-09-18] MEDS: diphenhydrAMINE 25 MG CAP PO PRN ×2 (06:07→17:43)
[2023-09-18] MEDS: Mometasone 100 MCG HFA INHALER (RT USE) INH SCH ×2 (08:14→19:25)
[2023-09-18] MEDS: Vancomycin (BATCH) 1.5 GM in Premix 1 BAG IVPB SCH ×2 (08:48→21:14)
[2023-09-18] MEDS: Aspirin 81 mg Enteric Coated Tablet PO SCH (08:50)
[2023-09-18] MEDS: Famotidine 20 MG TAB PO SCH ×2 (08:50→21:11)
[2023-09-18] MEDS: Polyethylene Glycol 3350 17 GM Packet PO SCH (08:50)
[2023-09-18] MEDS: hydrALAZINE 25 MG TAB PO SCH ×3 (08:50→21:09)
[2023-09-18] MEDS: Enoxaparin 40 MG (0.4 mL) SYRINGE SC SCH (08:50)
[2023-09-18] MEDS: Bumetanide 1 MG TAB PO SCH (08:50)
[2023-09-18] MEDS: Empagliflozin 10 MG TAB PO SCH (08:50)
[2023-09-18] MEDS: Amlodipine 10 MG TAB PO SCH (08:51)
[2023-09-18] MEDS: metFORMIN 500 MG TAB PO SCH (08:51)
[2023-09-18] MEDS: Calcium Carbonate 600 MG TAB PO SCH ×2 (08:51→21:11)
[2023-09-18] MEDS: Sertraline 100 MG TAB PO SCH (08:51)
[2023-09-18] MEDS: valACYclovir 500 MG TAB PO SCH (08:51)
[2023-09-18] MEDS: Carvedilol 6.25 MG TAB PO SCH ×2 (09:00→21:11)
[2023-09-18] MEDS: Perphenazine 2 MG TAB PO SCH (21:10)
[2023-09-18] MEDS: Terazosin HCl 5 MG CAP PO SCH (21:10)
[2023-09-18] MEDS: Senokot S 8.6-50 MG TAB PO PRN (21:10)
[2023-09-18] MEDS: hydrOXYzine 25 MG TAB PO PRN (21:11)
[2023-09-18 21:13] LABS: Vancomycin, Trough 17.6 ug/mL
[2023-09-18] MEDS: Melatonin 3 MG TAB PO PRN (22:54)
[2023-09-19] MEDS: HYDROcodone/Acetaminophen 5/325 mg Tablet PO PRN ×5 (01:06→21:19)
[2023-09-19] MEDS: Morphine 4 MG/ML VIAL SLOW IVP PRN ×4 (03:54→23:41)
[2023-09-19] MEDS: diphenhydrAMINE 25 MG CAP PO PRN (05:46)
[2023-09-19] MEDS: Mometasone 100 MCG HFA INHALER (RT USE) INH SCH ×2 (06:45→18:39)
[2023-09-19] MEDS: Albuterol 200 PUFF (6.7GM INHALER) INH PRN ×2 (06:46→18:40)
[2023-09-19] MEDS ORDERED: Lidocaine 1% PF 5 ML VIAL ONE (07:02)
[2023-09-19] MEDS ORDERED: Sodium Bicarbonate 0.5 MEQ/ML SDV 10 ML ONE (07:05)
[2023-09-19] MEDS: Carvedilol 6.25 MG TAB PO SCH ×2 (08:53→20:14)
[2023-09-19] MEDS: metFORMIN 500 MG TAB PO SCH (08:53)
[2023-09-19] MEDS: Amlodipine 10 MG TAB PO SCH (08:53)
[2023-09-19] MEDS: Calcium Carbonate 600 MG TAB PO SCH ×2 (08:53→20:14)
[2023-09-19] MEDS: Bumetanide 1 MG TAB PO SCH (08:53)
[2023-09-19] MEDS: Famotidine 20 MG TAB PO SCH ×2 (08:53→20:15)
[2023-09-19] MEDS: Polyethylene Glycol 3350 17 GM Packet PO SCH (08:53)
[2023-09-19] MEDS: hydrALAZINE 25 MG TAB PO SCH ×3 (08:54→20:14)
[2023-09-19] MEDS: valACYclovir 500 MG TAB PO SCH (08:54)
[2023-09-19] MEDS: Aspirin 81 mg Enteric Coated Tablet PO SCH (08:54)
[2023-09-19] MEDS: Sertraline 100 MG TAB PO SCH (08:54)
[2023-09-19] MEDS: Ferrous Sulfate 325 MG TAB PO SCH (08:54)
[2023-09-19] MEDS: Vancomycin (BATCH) 1.5 GM in Premix 1 BAG IVPB SCH ×2 (08:55→21:20)
[2023-09-19] MEDS: Empagliflozin 10 MG TAB PO SCH (08:55)
[2023-09-19] MEDS: Enoxaparin 40 MG (0.4 mL) SYRINGE SC SCH (08:55)
[2023-09-19] MEDS: Terazosin HCl 5 MG CAP PO SCH (20:14)
[2023-09-19] MEDS: Perphenazine 2 MG TAB PO SCH (20:14)
[2023-09-19] MEDS: Melatonin 3 MG TAB PO PRN (21:19)
[2023-09-19] MEDS: hydrOXYzine 25 MG TAB PO PRN (21:19)
[2023-09-20] MEDS: HYDROcodone/Acetaminophen 5/325 mg Tablet PO PRN ×3 (04:27→21:15)
[2023-09-20] MEDS: diphenhydrAMINE 25 MG CAP PO PRN ×2 (04:28→21:13)
[2023-09-20] MEDS: Mometasone 100 MCG HFA INHALER (RT USE) INH SCH ×2 (08:18→19:29)
[2023-09-20] MEDS: Albuterol 200 PUFF (6.7GM INHALER) INH PRN ×2 (08:23→15:39)
[2023-09-20] MEDS: Acetaminophen/Codeine 30-300mg Tablet PO PRN ×2 (08:36→17:40)
[2023-09-20] MEDS: Polyethylene Glycol 3350 17 GM Packet PO SCH (08:37)
[2023-09-20] MEDS: Vancomycin (BATCH) 1.5 GM in Premix 1 BAG IVPB SCH ×2 (08:38→21:13)
[2023-09-20] MEDS: Aspirin 81 mg Enteric Coated Tablet PO SCH (08:38)
[2023-09-20] MEDS: Bumetanide 1 MG TAB PO SCH (08:39)
[2023-09-20] MEDS: valACYclovir 500 MG TAB PO SCH (08:39)
[2023-09-20] MEDS: Carvedilol 6.25 MG TAB PO SCH ×2 (08:39→21:14)
[2023-09-20] MEDS: Famotidine 20 MG TAB PO SCH ×2 (08:39→21:14)
[2023-09-20] MEDS: Calcium Carbonate 600 MG TAB PO SCH ×2 (08:39→21:13)
[2023-09-20] MEDS: hydrALAZINE 25 MG TAB PO SCH ×3 (08:39→21:14)
[2023-09-20] MEDS: Amlodipine 10 MG TAB PO SCH (08:40)
[2023-09-20] MEDS: Empagliflozin 10 MG TAB PO SCH (08:40)
[2023-09-20] MEDS: Enoxaparin 40 MG (0.4 mL) SYRINGE SC SCH (08:40)
[2023-09-20] MEDS: Sertraline 100 MG TAB PO SCH (08:40)
[2023-09-20] MEDS: metFORMIN 500 MG TAB PO SCH (08:40)
[2023-09-20] MEDS: Perphenazine 2 MG TAB PO SCH (21:13)
[2023-09-20] MEDS: Terazosin HCl 5 MG CAP PO SCH (21:13)
[2023-09-21] MEDS: Acetaminophen/Codeine 30-300mg Tablet PO PRN ×2 (03:19→11:42)
[2023-09-21] MEDS: hydrALAZINE 25 MG TAB PO SCH (08:34)
[2023-09-21] MEDS: Enoxaparin 40 MG (0.4 mL) SYRINGE SC SCH (08:35)
[2023-09-21] MEDS: Carvedilol 6.25 MG TAB PO SCH (08:36)
[2023-09-21] MEDS: Calcium Carbonate 600 MG TAB PO SCH (08:36)
[2023-09-21] MEDS: Aspirin 81 mg Enteric Coated Tablet PO SCH (08:36)
[2023-09-21] MEDS: Famotidine 20 MG TAB PO SCH (08:36)
[2023-09-21] MEDS: Bumetanide 1 MG TAB PO SCH (08:36)
[2023-09-21] MEDS: Sertraline 100 MG TAB PO SCH (08:36)
[2023-09-21] MEDS: Amlodipine 10 MG TAB PO SCH (08:36)
[2023-09-21] MEDS: metFORMIN 500 MG TAB PO SCH (08:36)
[2023-09-21] MEDS: HYDROcodone/Acetaminophen 5/325 mg Tablet PO PRN (08:37)
[2023-09-21] MEDS: Ferrous Sulfate 325 MG TAB PO SCH (08:37)
[2023-09-21] MEDS: Empagliflozin 10 MG TAB PO SCH (08:37)
[2023-09-21] MEDS: valACYclovir 500 MG TAB PO SCH (08:37)
[2023-09-21] MEDS: Polyethylene Glycol 3350 17 GM Packet PO SCH (08:37)
[2023-09-21] MEDS: Vancomycin (BATCH) 1.5 GM in Premix 1 BAG IVPB SCH (08:38)
[2023-09-21 11:35] VITALS: BP 134/72; TEMP 97.4
== END 2023-09-21 12:20 | DRG 872 ==
LOC: SJJU 19:05 → EEVIPCON 19:05 → OBSVTOIN 09-12 11:13
PROVIDERS: ADMIT Family Medicine; ATTEND Internal Medicine
PROC: 3E03329 Introduction of Other Anti-infective into Peripheral Vein, Percutaneous Approach (ICD-10-PCS; 2023-09-11)
PROC: 5A09557 Assistance with Respiratory Ventilation, Greater than 96 Consecutive Hours, Continuous Positive Airway Pressure (ICD-10-PCS; 2023-09-12)
PROC: 02HV33Z Insertion of Infusion Device into Superior Vena Cava, Percutaneous Approach (ICD-10-PCS; principal; 2023-09-19)
PROC: B5181ZA Fluoroscopy of Superior Vena Cava using Low Osmolar Contrast, Guidance (ICD-10-PCS; 2023-09-19)
DX: A41.02 Sepsis due to Methicillin resistant Staphylococcus aureus (principal); I50.32 Chronic diastolic (congestive) heart failure; Z68.43 Body mass index [BMI] 50.0-59.9, adult; N17.9 Acute kidney failure, unspecified; G82.20 Paraplegia, unspecified; N49.2 Inflammatory disorders of scrotum; E66.01 Morbid (severe) obesity due to excess calories; E11.22 Type 2 diabetes mellitus with diabetic chronic kidney disease; E78.5 Hyperlipidemia, unspecified; I11.0 Hypertensive heart disease with heart failure; I89.0 Lymphedema, not elsewhere classified; G47.33 Obstructive sleep apnea (adult) (pediatric); R65.20 Severe sepsis without septic shock; Z82.49 Family history of ischemic heart disease and other diseases of the circulatory system; Z88.0 Allergy status to penicillin; Z79.899 Other long term (current) drug therapy; Z79.51 Long term (current) use of inhaled steroids; Z79.84 Long term (current) use of oral hypoglycemic drugs; Z83.3 Family history of diabetes mellitus; Z87.891 Personal history of nicotine dependence; I69.365 Other paralytic syndrome following cerebral infarction, bilateral; Z99.3 Dependence on wheelchair; Z86.11 Personal history of tuberculosis
CPT/HCPCS: 36415; 36569; 76870; 80048; 80053; 80202; 82565; 83605; 85025; 87040; 93306; 93976; 94660; 96374; 96375; 96376; C1751; G0378; J1650; J1885; J2270; J2543; J3370; J3480; J3490; Q0162; Q0175